=== PATIENT | female | born 1950 | race Hispanic/Latino ===

== ENCOUNTER → 2017-07-25 | Outpatient (CLI) | payer OTHER | END | disposition home or self-care (01) | LOC: RAH 07:47 | PROVIDERS: ATTEND Internal Medicine | DX: Z12.31 Encounter for screening mammogram for malignant neoplasm of breast (principal) | CPT/HCPCS: 77067 ==

== ENCOUNTER → 2019-07-22 | Outpatient (CLI) | payer OTHER | END | disposition home or self-care (01) | LOC: RAH 06-26 03:17 | PROVIDERS: ATTEND Internal Medicine | DX: Z12.31 Encounter for screening mammogram for malignant neoplasm of breast (principal) ==

== ENCOUNTER → 2019-10-31 | Outpatient (CLI) | payer OTHER | END | disposition home or self-care (01) | LOC: RAH 08:32 | PROVIDERS: ATTEND Internal Medicine | DX: M17.12 Unilateral primary osteoarthritis, left knee (principal) | CPT/HCPCS: 73562 ==

== ENCOUNTER → 2020-05-13 | Outpatient (CLI) | payer OTHER | END | disposition home or self-care (01) | LOC: RAH 10:02 | PROVIDERS: ATTEND Internal Medicine | DX: M25.512 Pain in left shoulder (principal); M47.812 Spondylosis without myelopathy or radiculopathy, cervical region; M85.80 Other specified disorders of bone density and structure, unspecified site | CPT/HCPCS: 72040; 73030 ==

== ENCOUNTER → 2021-01-31 | Outpatient (CLI) | payer OTHER | END | disposition home or self-care (01) | LOC: RAH 14:26 | PROVIDERS: ATTEND Internal Medicine | DX: Z12.31 Encounter for screening mammogram for malignant neoplasm of breast (principal) | CPT/HCPCS: 77067 ==

== ENCOUNTER → 2021-05-31 | Outpatient (CLI) | payer OTHER | LOC: RAH 07:33 | PROVIDERS: ATTEND Internal Medicine Gastroenterology | DX: N20.0 Calculus of kidney (principal); R94.5 Abnormal results of liver function studies | CPT/HCPCS: 76700 ==

== ENCOUNTER 2023-01-14 02:29 | Emergency (ER) | payer OTHER ==
[~2023-01-14] VITALS: Ht 162.6 cm; Wt 79.8 kg
[2023-01-14 02:31] VITALS: BP 153/89; PULSE 64; RESP 16
[2023-01-14 03:12] LABS: BASOPHILS # (AUTO) 0.04 K/uL (0.00-0.20); BASOPHILS % (AUTO) 0.4 % (0.0-5.0); EOSINOPHILS # (AUTO) 0.75 K/uL (0.00-0.70); EOSINOPHILS % (AUTO) 6.6 % (0.0-8.0); HEMATOCRIT 44.1 % (36-48); IMMATURE GRANULOCYTE ABSOLUTE 0.03 K/uL (0-1); LYMPHOCYTES # (AUTO) 4.9 K/uL (1.0-4.8); LYMPHOCYTES % (AUTO) 43.6 % (21.0-51.0); MEAN CORPUSCULAR HEMOGLOBIN 30.1 pg (27.0-33.0); MEAN CORPUSCULAR HGB CONC 32.7 g/dL (32.0-36.0); MEAN CORPUSCULAR VOLUME 92.3 fL (79-99); MONOCYTES # (AUTO) 0.9 K/uL (0.1-1.0); MONOCYTES % (AUTO) 7.5 % (3.0-13.0); NEUTROPHILS # (AUTO) 4.7 K/uL (1.8-7.7); NEUTROPHILS % (AUTO) 41.6 % (40.0-77.0); PLATELET COUNT (AUTO) 201 K/uL (130-400); RED BLOOD CELL COUNT(AUTO) 4.78 MIL/uL (4.00-5.50); RED CELL DISTRIBUTION WIDTH 14.9 % (11.0-15.5); WHITE BLOOD COUNT (AUTO) 11.3 K/uL (4.8-10.8)
[2023-01-14 03:34] LABS: MAGNESIUM 2.1 mg/dL (1.80-2.40)
[2023-01-14 03:41] LABS: B-TYPE NATRIURETIC PEPTIDE 36 pg/mL (0-100)
[2023-01-14 04:24] LABS: APPEARANCE,URINE CLEAR (CLEAR); BILIRUBIN,URINE NEGATIVE (NEGATIVE); COLOR,URINE LIGHT-YELLOW (YELLOW); GLUCOSE, URINE (UA) NEGATIVE (NEGATIVE); KETONES,URINE NEGATIVE (NEGATIVE); LEUKOCYTE ESTERASE ,URINE 250 Leu/uL (NEGATIVE); NITRATE,URINE NEGATIVE (NEGATIVE); OCCULT BLOOD,URINE NEGATIVE (NEGATIVE); PROTEIN,URINE NEGATIVE (NEGATIVE); UROBILINOGEN,URINE 0.2 mg/dL (0.2-1.0)
[2023-01-14 04:26] LABS: ADD UA MICROSCOPIC YES
[2023-01-14 04:27] LABS: BACTERIA,URINE FEW /HPF (None Seen); MUCUS,URINE RARE LPF (None Seen); WBC,URINE 26-50 /HPF (0-1)
[2023-01-14] MEDS ORDERED: ACETAMINOPHEN 500 MG TABLET ONE (05:11)
[2023-01-14] MEDS ORDERED: ACETAMINOPHEN 500 MG TABLET PO STA (05:14)
[2023-01-14] MEDS ORDERED: CEPH500T PO (05:52)
[2023-01-14 07:10] LABS: ALBUMIN 2.6 g/dL (3.5-5.0); BILIRUBIN,TOTAL 0.7 mg/dL (0.2-1.0); CREATININE 1.1 mg/dL (0.5-1.5); POTASSIUM 4.1 mmol/L (3.5-5.1); TOTAL PROTEIN, SERUM 6.5 g/dL (6.0-8.3)
[2023-01-14] MEDS ORDERED: IBUP-2070 PO (07:16)
== END 2023-01-14 07:25 | disposition home or self-care (01) ==
LOC: EDH 02:29
DX: N39.0 Urinary tract infection, site not specified (principal); G56.02 Carpal tunnel syndrome, left upper limb; M25.532 Pain in left wrist; I10 Essential (primary) hypertension; E11.9 Type 2 diabetes mellitus without complications; E78.00 Pure hypercholesterolemia, unspecified; Z90.710 Acquired absence of both cervix and uterus
CPT/HCPCS: 36415; 71045; 80053; 81001; 82550; 83735; 83880; 84484; 85025; 87077; 87088; 87186; 93005

== ENCOUNTER → 2023-01-22 | Outpatient (CLI) | payer OTHER ==
[~2023-01-22] MED LIST: CEPH500T PO; IBUP-2070 PO
== END | disposition home or self-care (01) ==
LOC: RAH 08:07
PROVIDERS: ATTEND Internal Medicine
DX: M19.032 Primary osteoarthritis, left wrist (principal); M19.042 Primary osteoarthritis, left hand; M47.812 Spondylosis without myelopathy or radiculopathy, cervical region; M79.642 Pain in left hand; M25.532 Pain in left wrist; M54.2 Cervicalgia; M48.02 Spinal stenosis, cervical region
CPT/HCPCS: 72040; 73110; 73130

== ENCOUNTER → 2023-03-26 | Outpatient (CLI) | payer OTHER | END | disposition home or self-care (01) | LOC: RAH 07:47 | PROVIDERS: ATTEND Internal Medicine | DX: Z12.31 Encounter for screening mammogram for malignant neoplasm of breast (principal) | CPT/HCPCS: 77067 ==

== ENCOUNTER → 2023-05-16 | Outpatient (CLI) | payer OTHER | END | disposition home or self-care (01) | LOC: RAH 07:05 | DX: Z01.818 Encounter for other preprocedural examination (principal) | CPT/HCPCS: 71045 ==

== ENCOUNTER → 2024-03-27 | Outpatient (CLI) | payer OTHER ==
--- NOTE | 2024-03-27 10:24 | HMCIMG ---
SCREENING MAMMOGRAM REASON: Annual Exam COMPARISON: 03/26/2023 TECHNIQUE: CC and MLO views of the bilateral breasts were performed.CAD was performed as well. FINDINGS: Parenchymal density: There are scattered areas of fibroglandular density. There are no focal mass lesions. There are no pathologic appearing calcifications. There is no evidence of architectural distortion or skin thickening. IMPRESSION: Normal screening mammogram The patient was entered into a reminder system with a target due date for their next mammogram. BI-RADS CATEGORY 1: NEGATIVE Recommend monthly self breast exam as well as annual clinical examination. A negative x-ray should not delay biopsy if a dominant or clinically suspicious mass is present, since 8-10% of cancers are not identified by mammography. Dense breasts particularly, may obscure an underlying neoplasm. Some of these may be detected clinically and therefore, clinical examination is an essential part of breast evaluation.
== END | disposition home or self-care (01) ==
LOC: RAH 07:49
PROVIDERS: ATTEND Internal Medicine
DX: Z12.31 Encounter for screening mammogram for malignant neoplasm of breast (principal); R92.323 Mammographic fibroglandular density, bilateral breasts
CPT/HCPCS: 77067

== ENCOUNTER → 2024-05-28 | Outpatient (CLI) | payer OTHER ==
--- NOTE | 2024-05-28 10:05 | HMCIMG ---
Exam Type: CHEST 2VWS Clinical Information: COPD Comparison: None Findings: The lungs are clear of infiltrates. The heart is normal in size. The bony and soft tissue structures of the chest are unremarkable. Impression: Clear lungs.
== END | disposition home or self-care (01) ==
LOC: RAH 07:05
PROVIDERS: ATTEND Internal Medicine
DX: J44.9 Chronic obstructive pulmonary disease, unspecified (principal); J06.9 Acute upper respiratory infection, unspecified; R05.3 Chronic cough
CPT/HCPCS: 71046

== ENCOUNTER → 2024-08-06 | Outpatient (CLI) | payer OTHER ==
--- NOTE | 2024-08-08 04:53 | HMCIMG ---
EXAM: CR Left Shoulder, 2 views. CLINICAL HISTORY: Pain. COMPARISON: Radiographs of the left shoulder dated 05/13/2020. FINDINGS: No acute fracture or aggressive appearing osseous lesion. Mild osteopenia. Mild osteoarthritis in the glenohumeral joint. Chronic acromioclavicular joint dissociation. There is an orthopedic anchor in the greater tubercle of the humerus. Grossly unremarkable soft tissues. IMPRESSION: No acute bony abnormality is evident. Mild osteopenia. Mild osteoarthritis in the glenohumeral joint. Chronic acromioclavicular joint dissociation. There is an orthopedic anchor in the greater tubercle of the humerus. No interval changes. /[place]
== END | disposition home or self-care (01) ==
LOC: RAH 07:35
PROVIDERS: ATTEND Internal Medicine
DX: M19.012 Primary osteoarthritis, left shoulder (principal); M85.812 Other specified disorders of bone density and structure, left shoulder; M25.812 Other specified joint disorders, left shoulder; M25.512 Pain in left shoulder
CPT/HCPCS: 73030

== ENCOUNTER → 2024-11-06 | Outpatient (CLI) | payer OTHER ==
[~2024-11-06] MED LIST changes: +IBUP-1492 PO; -IBUP-2070 PO
[2024-11-06] MEDS: REGADENOSON 0.4 MG/5 ML PF SYG IVP ONE (11:12)
== END | disposition home or self-care (01) ==
LOC: RAH 08:40
PROVIDERS: ATTEND Internal Medicine Cardiovascular Disease
DX: I10 Essential (primary) hypertension (principal); E78.2 Mixed hyperlipidemia; R06.00 Dyspnea, unspecified; Z13.9 Encounter for screening, unspecified; R53.83 Other fatigue; R07.9 Chest pain, unspecified
CPT/HCPCS: 78452; 93017; J2785; A9500 ×2

== ENCOUNTER 2024-11-28 06:51 | Day surgery (SDC) | payer OTHER ==
[2024-11-26 09:37] VITALS: BP 147/89; PULSE 72; RESP 13; TEMP 97.7
[2024-11-26 09:37] LABS: IMMATURE GRANULOCYTE ABSOLUTE 0.03 K/uL (0-1); NUCLEATED RED BLOOD CELLS 0.0 % (0.0-0.19); PLATELET COUNT (AUTO) 223 K/uL (130-400); RED BLOOD CELL COUNT(AUTO) 4.77 MIL/uL (4.00-5.50); RED CELL DISTRIBUTION WIDTH 13.8 % (11.0-15.5); WHITE BLOOD COUNT (AUTO) 9.1 K/uL (4.8-10.8)
[2024-11-26 09:47] LABS: INR 1.03 (0.85-1.15)
[2024-11-26 09:48] LABS: APPEARANCE,URINE CLOUDY (CLEAR); GLUCOSE, URINE (UA) NEGATIVE (NEGATIVE); LEUKOCYTE ESTERASE ,URINE 500 Leu/uL (NEGATIVE); NITRATE,URINE NEGATIVE (NEGATIVE); OCCULT BLOOD,URINE SMALL (NEGATIVE)
[2024-11-26 09:49] LABS: ADD UA MICROSCOPIC YES
[2024-11-26 09:51] LABS: CREATININE 1.4 mg/dL (0.5-1.0); GLOMERULAR FILTR. RATE CALC 40.0 mL/min (>90); GLUCOSE,RANDOM 112.0 mg/dL (70-105); SODIUM SERUM 141.0 mmol/L (136-145); UREA NITROGEN, BLOOD 26.0 mg/dL (7-18)
[2024-11-26 09:55] LABS: SQUAMOUS EPITHELIAL CELL,UR MOD /HPF (0-2); WBC CLUMP MOD /HPF (0-1)
--- NOTE | 2024-11-26 14:02 | EKG ---
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
--- NOTE | 2024-11-27 08:16 | HMCIMG ---
EXAM: CR Chest, 1 View. CLINICAL HISTORY: PRE OP COMPARISON: None provided. FINDINGS: LUNGS: There is no mass, infiltrate, or acute pulmonary abnormality. PLEURAL SPACES: No evidence of pleural effusion or pneumothorax. MEDIASTINUM: Cardiac size and mediastinal contours within normal limits. BONES: No acute osseous abnormality. IMPRESSION: No acute cardiopulmonary pathology is evident. /[place]
--- NOTE | 2024-11-27 13:00 | NUR ---
RE: LABS REPORTED BMP RESULTS AND URINE CX RESULTS TO DR NAVA. RECEIVED ORDERS FOR LEVAQUIN 500MG PO DAILY X 7 DAYS.
--- NOTE | 2024-11-27 14:19 | NUR ---
RE: LABS CALLED [facility] AND SPOKE WITH MASON (PHARMACIST), ORDERED LEVAQUIN 500MG PO DAILY X 7 DAYS. CALLED PATIENT AND INSTRUCTED HER TO HOME THERAPY CLINICIAN ANTIBIOTIC AND START TAKING TODAY FOR UTI. PATIENT VERBALIZED UNDERSTANDING.
[~2024-11-28] VITALS: Ht 160 cm; Wt 90.8 kg
[2024-11-28] VITALS (9 sets, daily range): BP systolic 136–164; BP diastolic 84–97; PULSE 69–78; RESP 14–18; TEMP 97.7
[~2024-11-28 06:51] MED LIST changes: +ASPI-1197 PO; +ATOR10 PO; +BISA-151 PO; -CEPH500T PO; +CLOP75TA32 PO; -IBUP-1492 PO; +LOSA100T59 PO; +PANT40TA54 PO
[2024-11-28] MEDS ORDERED: SODIUM BICARB 50MEQ 50ML VIAL 50 ML ONE (08:59)
[2024-11-28] MEDS ORDERED: IOHEXOL 350 MG/ML 100ML INFUS..BTL IV ONE (08:59)
[2024-11-28] MEDS ORDERED: IOHEXOL-350 50ML VIAL IV ONE (08:59)
[2024-11-28] MEDS ORDERED: LIDOCAINE HCL 400MG/20ML VIAL ONE (08:59)
[2024-11-28] MEDS ORDERED: HEParin-NS 1,000 UNIT/500 ML 1,000 ML IV ONE (09:00)
[2024-11-28] MEDS ORDERED: NITROGLYCERIN 50MG VIAL ONE (09:01)
[2024-11-28] MEDS ORDERED: MIDAZOLAM HCL 1 MG/ML 2ML VIAL ONE ×2 (09:24→09:28)
[2024-11-28] MEDS ORDERED: 0.9%NACL 1000ML 1,000 ML IV SCH (10:30)
--- NOTE | 2024-11-28 12:24 | NUR ---
VAS BAND REMOVED AT THIS TIME RIGHT RADIAL SITE ASYMPTOMATIC. DRESSED WITH GAUZE TEGADERM WRAPPED WITH COBAND RIGHT RADIAL SITE ASYMPTOMATIC
--- NOTE | 2024-11-28 13:00 | NUR ---
CIVIL SERVICE CLERK REPORT H&P FAXED TO DR. G[facility] OFFICE FOR OUT PATIENT FOLLOW UP
--- NOTE | 2024-11-28 13:05 | NUR ---
PER DR. [facility] PATIENT IS OK TO BE DISCHARGED HOME AND TO FOLLOW UP OUTPATIENT WITH THEM FOR CV CONSULT. DAUGHTERS AND PATIENT WERE MADE AWARE
--- NOTE | 2024-11-28 14:25 | NUR ---
BOTH PT AND DAUGHTER GIVEN VERBAL AND WRITTEN DISCHARGE INSTRUCTIONS. BOTH INSTRUCTED TO CALL [facility] IN 2-3 BUSINESS DAYS FOR A CONSULT APPOINTMENT IF THEY HAVE NOT CALLED PT BY THEN. [facility] PHONE NUMBER AND ADDRESS GIVEN TO PT AND DAUGHTER. IV REMOVED SITE ASYMPTOMATIC. PT TAKEN OUT VIA WHEELCHAIR DAUGHTER DRIVING.
--- NOTE | 2024-11-28 20:20 | CCATH ---
PROCEDURE NOTE PROCEDURES: 1. Left heart cath. 2. Selective right and left coronary arteriogram. 3. Conscious sedation for 30 minutes. INDICATIONS: 1. Recurrent angina. 2. High coronary calcium score. 3. Abnormal Lexiscan Cardiolite. APPROACH: Right radial approach. COMPLICATIONS: None. NOTE: The patient has a tortuous radial on the right as well as brachiocephalic access. TOTAL CONTRAST: 50 mL. DESCRIPTION OF PROCEDURE: The patient was taken to the cardiac catheterization lab after appropriate operative consents were signed. The patient was prepped and draped in the usual fashion. After conscious sedation was administered, the right radial artery region was infiltrated with 2% Xylocaine without epinephrine. A 6-Amharic sheath was advanced in a retrograde fashion with the slender radial sheath utilized. At this point, attempts at advancing the standard wire were not successfully utilized that was able to traverse the area of tortuosity in the radial to subclavian juncture area. There was also another area of tortuosity in the brachiocephalic region; however, that straightened out with placement of the wire. At this point, a TIG-4 catheter was advanced over the indwelling wire. The catheter was placed in the left ventricular cavity. Left ventricular endoscopic pressure measurement was obtained. Pullback revealed no aortic stenosis. Ventriculography was deferred. The patient had preserved LV systolic function by noninvasive studies. At this point, the catheter was engaged in the ostium of the left main coronary artery. Imaging was obtained in multiple planes. The left main was a large vessel that was calcified. It bifurcated with an LAD and circumflex. The left main had a hazy calcified 80% lesion in its distal portion encroaching upon the proximal to ostial portion of the LAD. The LAD was a large vessel that was calcified and gave rise to a large branching diagonal 1 ongoing LAD with other diagonal septal perforators. After the first large branching diagonal, the LAD had an 80% hazy lesion. One of the diagonal branches that was most medial had a 70% lesion. This was a sizable diagonal branch. Circumflex coronary artery was not seen by [place] injection of the left coronary system; however, retrograde filling via right collaterals to left collaterals identified a large OM1 that fills in a retrograde fashion. The catheter was withdrawn and engaged in the right coronary artery. Imaging was obtained in multiple planes. This was a moderately large vessel that was calcified, had a 70% lesion in its mid portion, gave rise to a moderately large PDA and a branching PLVB. The PDA had a 50% lesion. Given the findings and the patient's prior presentation, the plan was to continue with optimizing medical care and consultation with surgery. The catheter was withdrawn over an indwelling wire. The radial band was applied after the sheath was discontinued. The patient tolerated the procedure well and left the cardiac catheterization lab in stable condition. FINAL IMPRESSION: 1. Severe three vessel coronary artery disease including distal left main and a chronic circumflex occlusion at the ostium. 2. No aortic stenosis. 3. Preserved systolic function by noninvasive studies. PLAN: Consultation with regard to thoracic surgery. TID: [id number] RECEIPT: [id number]
== END 2024-11-28 14:49 | disposition home or self-care (01) ==
LOC: DAH 06:51
PROVIDERS: ATTEND Internal Medicine Cardiovascular Disease
DX: I25.118 Atherosclerotic heart disease of native coronary artery with other forms of angina pectoris (principal); I25.84 Coronary atherosclerosis due to calcified coronary lesion; R94.39 Abnormal result of other cardiovascular function study; I10 Essential (primary) hypertension; J45.909 Unspecified asthma, uncomplicated; K21.9 Gastro-esophageal reflux disease without esophagitis; F41.9 Anxiety disorder, unspecified; E78.2 Mixed hyperlipidemia; E66.9 Obesity, unspecified; N28.9 Disorder of kidney and ureter, unspecified; Z68.35 Body mass index [BMI] 35.0-35.9, adult; Z79.01 Long term (current) use of anticoagulants; Z79.899 Other long term (current) drug therapy
CPT/HCPCS: 80048; 83880; 85025; 85610; 85730; 87086 ×2; 81001; 36415; 71045; 93005; 93458; 87186; 99156; 99157 ×2; C1769 ×2; A4649; C1894; J3010; J3490 ×4; J1644 ×2; J2250 ×2; Q9967 ×2; A4215; A4222; A4221; A4663; A4216; A4606; Q9965; A4223 ×3